=== PATIENT | male | born 1990 | race American Indian/Alaskan Native ===

== ENCOUNTER 2017-04-20 13:05 | Outpatient (CLI) | payer BC, MEDICARE | END 2017-04-20 13:06 | disposition home or self-care (01) | LOC: WOUND 13:05 | PROVIDERS: ATTEND Podiatrist | DX: L03.031 Cellulitis of right toe (principal); L60.0 Ingrowing nail | CPT/HCPCS: 99215; G0463 ==

== ENCOUNTER 2017-04-26 07:54 | Day surgery (SDC) | payer BC, MEDICAID ==
[2017-04-26] MEDS ORDERED: NACL 0.9% 1000 ML 1,000 ML IV SCH (09:07)
[2017-04-26] MEDS ORDERED: PEPCID IV NR (09:07)
--- NOTE | 2017-04-26 09:07 | Anesthesia Day of Surgery ---
Anesthesia Day of Surgery - Day of Surgery Patient Examined: Yes Patient H&P Reviewed: Yes Patient is NPO: Yes
--- NOTE | 2017-04-26 09:07 | Anesthesia Consultation ---
Anesthesia Consult and Med Hx Date of service: 04/26/17 - Airway ROM Head & Neck: Adequate Mental/Hyoid Distance: Adequate - Pulmonary Exam CTA: Yes - Cardiac Exam Cardiac Exam: RRR - Pre-Operative Health Status ASA Pre-Surgery Classification: ASA3 Proposed Anesthetic Plan: General, MAC - Pulmonary Hx Smoking: No Hx Sleep Apnea: No (DEEPAK PRE SCREEN LOW RISK.) - Cardiovascular System Hx Hypertension: No - Central Nervous System Hx Neuromuscular Disorder: Yes (AUTISM) Hx Psychiatric Problems: Yes (ADHD) - Other Systems Hx Cancer: No Hx Obesity: Yes (MORBID OBESITY, BMI > 40) - Additional Comments Anesthesia Medical History Comments: UNABLE TO ASSESS DENTITION OR MALLAMPATI, PATIENT WILL NOT OPEN HIS MOUTH.
[2017-04-26] MEDS ORDERED: ANCEF/STERILE WATER 2 GM/20 ML IV NR (09:30)
[2017-04-26] MEDS ORDERED: SUBLIMAZE ONE (09:43)
[2017-04-26] MEDS ORDERED: DIPRIVAN 10 MG/ML IV ONE (09:43)
[2017-04-26] MEDS ORDERED: XYLOCAINE MPF 2% ONE (09:44)
[2017-04-26] MEDS ORDERED: MARCAINE 0.5% 30 ML INFILTRATI ONE (09:45)
[2017-04-26] MEDS ORDERED: VERSED PO NR (10:00)
[2017-04-26] MEDS ORDERED: ANCEF/STERILE WATER 2 GM/20 ML 2 GM/20 ML SYRINGE IV ONE (10:05)
[2017-04-26] MEDS ORDERED: KETALAR ONE (10:22)
[2017-04-26] MEDS ORDERED: NEO SYNEPHRINE/NS Syringe(OR USE) IV ONE (10:30)
[2017-04-26] MEDS ORDERED: ZOFRAN ONE (10:32)
[2017-04-26] MEDS ORDERED: ANTIBIOTIC OINT TP ONE ×2 (10:47→10:52)
[2017-04-26] MEDS ORDERED: NEOSPORIN GU IR ONE ×2 (10:48→10:50)
[2017-04-26] MEDS ORDERED: NACL 0.9% IR ONE (10:49)
[2017-04-26] MEDS ORDERED: MARCAINE 0.5% INFILTRATI ONE ×3 (10:50)
[2017-04-26] MEDS ORDERED: ePHEDrine SULFATE ONE (10:50)
[2017-04-26 20:16] VITALS: BP 152/78
--- NOTE | 2017-05-04 13:09 | Operative Report ---
PREOPERATIVE DIAGNOSES: Right hallux infection, onychocryptosis ingrowing toenail and paronychia. POSTOPERATIVE DIAGNOSES: Right hallux infection, onychocryptosis ingrowing toenail and paronychia. PROCEDURE: Total nail avulsion with debridement of excess skin folds. ANESTHESIA: General with 6 mL of Marcaine plain. ANESTHESIOLOGIST: Dr. Burk SPECIMEN: Nail was sent to pathology. ESTIMATED BLOOD LOSS: Minimum. DESCRIPTION OF PROCEDURE: The patient was brought into the operating room and placed on the operating table. The patient was then put under general anesthesia at which time a 5 mL of Marcaine plain was injected into the operative site. Foot was scrubbed and draped in normal sterile manner. A Luis drape was used as a tourniquet on the patient's right big toe. A periosteal [place] elevator was used to free the nail on the medial and lateral borders, proximal nail fold and under the nail bed. Once the nail was freed completely from the nail bed. A hemostat was then used to pull the nail out. The excess skin fold on the medial and lateral border from the excessive infection was debrided. The area was then flushed copiously with saline and antibiotic. Wound was then dressed with antibiotic ointment, Adaptic, 4 x 4 gauze, Bj and Coban. The patient tolerated procedure well and was then transferred to the recovery room in stable condition. Instructions were given and once the patient is stable to be discharged from the recovery room with op note. JOB# [id number] LORENZO/DEVIN
== END 2017-04-26 12:15 | disposition home or self-care (01) ==
LOC: OR 07:54
PROVIDERS: ATTEND Podiatrist
DX: L60.0 Ingrowing nail (principal); L03.031 Cellulitis of right toe; F84.0 Autistic disorder; F90.9 Attention-deficit hyperactivity disorder, unspecified type; F32.9 Major depressive disorder, single episode, unspecified; G47.00 Insomnia, unspecified; E66.01 Morbid (severe) obesity due to excess calories; Z68.41 Body mass index [BMI] 40.0-44.9, adult; Z79.899 Other long term (current) drug therapy; Z82.49 Family history of ischemic heart disease and other diseases of the circulatory system; Z83.3 Family history of diabetes mellitus
CPT/HCPCS: 11730; 88305; 88312; J0690; J2370; J2405; J2704; J3010; J7030; 88304